=== PATIENT | male | born 1990 | race Caucasian/White ===

== ENCOUNTER 2017-03-11 12:08 | Day surgery (SDC) | payer OTHER ==
[~2017-03-11] VITALS: Ht 185.4 cm; Wt 94.0 kg
[~2017-03-11 12:08] MED LIST: ALBU18HF INHALATION; OMEP40CA6 PO
[2017-03-11] MEDS ORDERED: FEXO60TA20 PO (13:02)
[2017-03-11 13:05] VITALS: Ht 185.4 cm; Wt 94.0 kg
[2017-03-11] MEDS ORDERED: OMEP20CA16 PO (13:16)
[2017-03-11 13:26] VITALS: BP 125/59; PULSE 69; RESP 17
[2017-03-11] MEDS ORDERED: PROPOFOL 20 ML ONE ×2 (13:51→14:53)
--- NOTE | 2017-03-11 14:58 | OPPN ---
Date/Time of Note Date/Time of Note DATE: 03/11/17 TIME: 14:51 Proc Note GI Procedure Date 03/11/17 Pre-procedure Diagnosis * Abdominal pain not responding to treatment * History of duodenal ulcer Post-procedure Diagnosis Impression: * Mild distal esophagitis. * Multiple esophageal rings. Rule out eosinophilic esophagitis. Biopsies obtained * Mild gastritis. Rule out H. pylori infection. Biopsies obtained * Healed duodenal ulcer Plan: Continue PPI therapy Review pathology as soon as available Follow-up as previously scheduled . 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 pylori infection Biopsy 2: Midesophagus/rule out eosinophilic esophagitis Grafts/Implants none Tubes/Drains none Complication(s) none Pt Condition post procedure: stable Disposition: home Indications: other (Persistent abdominal pain/history of duodenal ulcer) Procedure Description After informed consent, with the patient/relatives understanding the procedure, its indications, potential risks and complications, including but not limited to : allergic reaction, bleeding, perforation or infection, and after all pertinent questions were answered to the patients satisfaction, the patient/ relatives signed witnessed informed consent. Following this, premedication was administered slowly IV push under careful cardiovascular and respiratory monitoring with pulse oximetry, automatic blood pressure, and monitoring specialist. Once the sedative effect was achieved the patient was place in the left lateral decubitus, the panendoscope was introduced and advanced under visual control. Careful examination of the upper gastrointestinal tract, both on insertion as well as withdrawal of the instrument disclosing the following findings: ESOPHAGUS: the mucosa of the entire esophagus was carefully examined and showed the following findings: There is a multitude of rings in the body of the esophagus. Biopsies were obtained to rule out eosinophilic esophagitis. There is mild erythema of the mucosa at the esophagogastric junction. Otherwise the mucosa appears within normal limits. There is no evidence of varices, neoplasm, or stricture. No Hiatal Hernia identified. STOMACH: Upon entrance to the stomach air was insufflated, the gastric calderon distended normally. The mucosa of the fundus, body and antrum of the stomach was carefully examined both head-on and on retroflexion, and showed the following findings: There is mild erythema and edema of the mucosa of the body and antrum of the stomach. Biopsies were obtained to rule out H. pylori infection. Otherwise the mucosa appears within normal limits with no abnormalities. There is no evidence of ulcers or neoplasm. PYLORUS: The pylorus was carefully examined and showed the following findings: the pylorus appears patent and within normal limits, with no evidence of gastric outlet obstruction. DUODENUM: The duodenal mucosa was carefully examined in the duodenal bulb as well as the second portion of the duodenum and showed the following findings: The previously noted duodenal ulceration is completely healed. The mucosa appears unremarkable with no evidence of duodenitis, ulcer or neoplasm. Copies To: CC: SHARAN SULTANA MD, MORDO MD Mar 11, 2017 14:58
[2017-03-11 15:19] VITALS: BP 124/70; RESP 18
== END 2017-03-11 18:03 | disposition home or self-care (01) ==
LOC: GIL 12:08
PROVIDERS: ATTEND Internal Medicine Gastroenterology
DX: K29.30 Chronic superficial gastritis without bleeding (principal); K20.9 Esophagitis, unspecified; K22.2 Esophageal obstruction
CPT/HCPCS: 43239; 88305; 88312; Z7610

== ENCOUNTER 2017-09-08 11:16 | Day surgery (SDC) | END 2017-09-08 19:03 | disposition home or self-care (01) ==